=== PATIENT | male | born 1950 | race Caucasian/White ===

== ENCOUNTER 2022-10-10 08:19 | Outpatient (CLI) | payer OTHER, SELFPAY ==
--- NOTE | ~2022-10-10 | US_ITS ---
Renal-Bladder ultrasound Clinical History: Renal cyst Technique: Real-time sonographic imaging of the kidneys and urinary bladder was performed. Findings: The right kidney measures 10.8 cm in length and the left kidney measures 11.5 cm. There is no hydronephrosis or renal calculus identified. Renal cortical echogenicity is within normal limits. No solid renal mass lesion is identified. Small right renal cyst is present. The urinary bladder is moderately distended at the time of this exam. No intraluminal echoes are iden tified. No abnormal wall thickening is seen. Impression: Small right renal cyst, of no clinical significance. Reviewed, dictated and finalized at location M. Impression: Small right renal cyst, of no clinical significance.
== END 2022-10-10 08:20 | disposition home or self-care (01) ==
DX: R93.421 Abnormal radiologic findings on diagnostic imaging of right kidney (principal); N28.1 Cyst of kidney, acquired
CPT/HCPCS: 76775

== ENCOUNTER 2024-11-19 12:27 | Outpatient (CLI) | payer OTHER, SELFPAY ==
--- NOTE | ~2024-11-19 | CT_ITS ---
CT Scan of the Chest without Contrast: Clinical Indication: Lung cancer screening, nicotine dependence Technique: Contiguous sections were acquired throughout the chest without intravenous contrast. Dose reduction technique was used on this scan by utilizing automated exposure control and iterative recon struction technique. The dose-length product (DLP) was 103.21 mGy-cm. Findings: There is no evidence of any significant mediastinal, hilar or axillary lymphadenopathy. Calcified med iastinal and hilar lymph nodes are present. Coronary artery calcifications are present. There is no evidence of pleural or pericardial effusion. 4 mm nodule noted along right minor fissure (axial image 80). Additional 3 mm right middle lobe nodul e present (axial image 83). Calcified right lower lobe granuloma present. 3 mm left lower lobe nodule s are present (axial image 80). Images through the upper abdomen reveal no abnormalities. Impression: Lung RADS 2: Benign appearance. 12 month follow-up screening CT advised. Reviewed, dictated and finalized at [facility]. Impression: Lung RADS 2: Benign appearance. 12 month follow-up screening CT advised.
--- OUTSIDE RECORDS SUMMARY | 2024-11-19 12:35 | XMS_ITS | Clinical Summary ---
Author Organization [facility] Facility Address [address] [address] Care Team Providers Care Jackerman Name Role Phone Unavailable Primary Care Provider Unavailabl e Social History Tobacco Use Types Packs/Day Years Used Date Smoking Tobacco: Never Assessed Sex and Gender Information Value Date Recorded Sex Assigned at Not on file Legal Sex Male 6:15 PM EDT Gender Identity Not on file Sexual Orientation Not on file Plan of Treatment Health Maintenance Due Date Last Done Comments Colorectal Cancer Screening: Annual FOBT 1999 Colorectal Cancer Screening: Colonoscopy 1999 Colorectal Cancer Screening: Sigmoidoscopy 1999 Pneumococcal Vaccine: 50+ Ye ars (1 of 1 - PCV) 2000 Influenza Vaccine (Season Ended) 2025 Hepatitis B Vaccine Aged Out No longe r eligible based on patient's age to complete this topic
--- OUTSIDE RECORDS SUMMARY | 2024-11-19 12:35 | XMS_ITS | Continuity of Care Document ---
Author Name [facility] Organization [facility] Care Team Providers Care Statement Distribution Clerk Name Role Phone [facility] Unavailable Unavailable Problems Combined list of problems from Department of Defense and Veterans Affairs facilities. It does not include entries that were removed or entered in error. Problem Status Onset Date Problem Type Date of Resolution Comments Source Colonic polyp Active Condition [facility] Essential hypertension Active Condition [facility] Exposure to potentially hazardous substance Active Condition [facility] Exposure to potentially hazardous substance ([facility] [id number]) Active Condition Oct 29 4 Entered By: IDALIA FREEDMAN Comment: Entered automatically through [facility] Problem List documentation program [facility] Fitting/Adjustmen t Hearing Aid Active Condition [facility] Hearing loss Active Condition [facility] Hearing Loss (SCT [id number]) Active Condition [facility] HTN - Hypertension (SCT [id number]) Active Condition [facility] Hyperlipidemia Active Condition [facility] Impaired glucose tolerance Active Condition [facility] Mixed Hyperlipidemia (SCT 798857652) Active Condition [facility] Obstructive sleep apnea Active Condition [facility] Obstructive Sleep Apnea of Adult (SCT [id number]) Active Condition [facility] Senorineural Loss Combined Types Active Condition [facility] Tobacco use Active Condition [facility] Tobacco user Active Condition [facility] Tobacco User (SCT 784232136) Active Condition [facility] HYPERLIPIDEMIA Active Condition [facility] tobacco use Active Condition [facility] HEARING LOSS Active Condition [facility] Need For Vaccination Hepatitis B Active Condition [facility] Vaccines Prophylactic Need Against Bacterial Diseases Active Condition [facility] Need For Vaccination Typhoid Inactive Condition [facility] Vaccines Prophylactic Need Against Single Disease Inactive Condition [facility] Need For Vaccination Hepatitis A Active Condition [facility] Vaccines Prophylactic Need Against DTP Inactive Condition DoD visit for: services physical Active Condition Pending optics. DoD visit for: occupational health / fitness exam Active Condition [facility] NORMAL ROUTINE HISTORY AND PHYSICAL Inactive Condition Form 78 completed and faxed (per their request and with patient consent signed) to Personnel Office. No limiting conditions for this job. [facility] Diagnosis: ICD-10-CM I10 Essential (primary) hypertension Active Diagnosis [facility] Diagnosis: ICD-10-CM Z76.89 Persons encountering health services in oth circumstances Active Diagnosis [facility] Diagnosis: ICD-10-CM Z86.010 Personal history of colonic polyps Active Diagnosis [facility] Diagnosis: ICD-10-CM G47.33 Obstructive sleep apnea (adult) (pediatric) Active Diagnosis [facility] Medications Combined list of outpatient medications from Department of Defense and Veterans Affairs facilities.Medications provided include 1) outpatient medications from the last 15 months, and 2) patient-reported medications. Medication Details Route Status Patient Instructions Prescription Expires Prescription Number Last Dispense Date Ordering Provider Order Date Order Qty Source amLODIPine (U/D) 5 MG ORAL TAB TAKE ONE TABLET BY MOUTH EVERY MORNING FOR BLOOD PRESSURE 05/27/2024 [id number] SHANDA TURNER 2023 90 [facility] , VISN 15 AMLODIPINE BESYLATE 10MG TAB TAKE ONE-HALF TABLET BY MOUTH EVERY MORNING ORAL ACTIVE MULUGETA CULLEN 2017 [facility] ([place]) AMLODIPINE BESYLATE 5MG TAB TAKE ONE TABLET BY MOUTH EVERY MORNING FOR BLOOD PRESSURE ORAL ACTIVE 06/16/2025 [id number] 5 GRANT SAUL 2023 90 [facility] AMLODIPINE BESYLATE 5MG TAB TAKE ONE TABLET BY MOUTH EVERY MORNING FOR BLOOD PRESSURE ORAL DISCONT INUED 05/27/2024 [id number] 4 Ilya TURNER 2022 90 [facility] cholecalcif (VIT D3) 2,000 UNIT ORAL TAB TAKE TWO TABLETS BY MOUTH ONCE A DAY FOR VITAMIN DEFICIEN CY 05/27/2024 [id number] 4 SHANDA TURNER 2023 200 [facility] , VISN 15 CHOLECALCIF LESLEY 50MCG (2,000UNIT) TAB TAKE TWO TABLETS BY MOUTH ONCE A DAY FOR VITAMIN DEFICIEN CY ORAL ACTIVE 06/20/2025 [id number] 5 [facility] [address] [facility] CHOLECALCIF LESLEY 50MCG (2,000UNIT) TAB TAKE TWO TABLETS BY MOUTH ONCE A DAY FOR VITAMIN DEFICIEN CY ORAL DISCONT INUED 05/27/2024 [id number] 4 Ilya TURNER 2022 200 [facility] Enalapril Maleate (Vasotec Eq.) Tablet 20 mg Oral TAKE TWO TABLETS BY MOUTH ONCE A DAY FOR HIGH BLOOD PRESSURE 05/27/2024 [id number] 4 SHANDA TURNER 2023 180 [facility] 15 ENALAPRIL MALEATE 20MG TAB TAKE TWO TABLETS BY MOUTH ONCE A DAY FOR HIGH BLOOD PRESSURE ORAL ACTIVE 06/20/2025 [id number] 5 [facility] [address] [facility] ENALAPRIL MALEATE 20MG TAB TAKE TWO TABLETS BY MOUTH ONCE A DAY FOR HIGH BLOOD PRESSURE ORAL DISCONT INUED 05/27/2024 [id number] 4 Ilya TURNER 2022 180 [facility] ENALAPRIL MALEATE 20MG TAB TAKE TWO TABLETS BY MOUTH ONCE A DAY ORAL ACTIVE Bayron KIMBROUGH 2015 [facility] ([place]) MULTIVITAMI N/MINERALS SENIOR FORMULA TAB TAKE 1 TABLET BY MOUTH ONCE A DAY FOR VITAMIN SUPPLEME NTATION ORAL ACTIVE 06/20/2025 [id number] 5 [facility] [address] [facility] MULTIVITAMI N/MINERALS SENIOR FORMULA TAB TAKE 1 TABLET BY MOUTH ONCE A DAY FOR VITAMIN SUPPLEME NTATION ORAL DISCONT INUED 05/27/2024 [id number] 4 Ilya TURNER A 2022 120 [facility] MULTIVITAMI NS W/MINERALS TAB TAKE ONE TABLET BY MOUTH EVERY DAY ORAL ACTIVE KAREL WOO [address] [facility] simvastatin (U/D) 80 MG ORAL TAB TAKE ONE-HALF TABLET BY MOUTH AT BEDTIME FOR CHOLESTE ROL 05/27/2024 [id number] 4 SHANDA TURNER [address] SIMVASTATIN 40MG TAB TAKE ONE TABLET BY MOUTH AT BEDTIME ORAL ACTIVE KAREL WOO ALAN [address] [facility] SIMVASTATIN 80MG TAB TAKE ONE-HALF TABLET BY MOUTH AT BEDTIME FOR CHOLESTE ROL ORAL ACTIVE 06/20/2025 [id number] 5 GRANT SAUL [address] [facility] SIMVASTATIN 80MG TAB TAKE ONE-HALF TABLET BY MOUTH AT BEDTIME FOR CHOLESTE ROL ORAL DISCONT INUED 05/27/2024 [id number] 4 Ilya TURNER 2022 45 [facility] SIMVASTATIN 80MG TAB TAKE ONE-HALF TABLET BY MOUTH AT BEDTIME ORAL ACTIVE [facility]UL[facility]GETA CULLEN 2016 [facility] Allergies, Adverse Reactions, Alerts Combined list of allergies from Department of Defense and Veterans Affairs facilities. It does not include entries that were removed or entered in error. Substance Category Reaction Severity Reaction type Status Date Reported Comments Source ATORVASTATIN Drug allergy (disorder) Myalgias, Muscle Weakness active 3 [facility] ATORVASTATIN Propensity to adverse reactions to drug (finding) Muscle weakness active 3 [facility] CRESTOR Propensity to adverse reactions to drug (finding) Muscle pain active [address] [facility] CRESTOR Propensity to adverse reactions to drug (finding) Muscle weakness active 3 [facility] LIPITOR Propensity to adverse reactions to drug (finding) Muscle pain active [address] [facility] LIPITOR Propensity to adverse reactions to drug (finding) Muscle weakness active 3 [facility] Omeprazole Drug allergy (disorder) Arthralgias active 8 [facility] OMEPRAZOLE Propensity to adverse reactions to drug (finding) Joint pain active 3 [facility] ROSUVASTATIN Drug allergy (disorder) Myalgias, Muscle Weakness active 3 [facility] Immunizations Combined list of available immunizations from the Department of Defense and Veterans Affairs facilities. Immunization Series Date Given Administered By Site Reaction Lot Number CVX Code Drug Certified Personal Chef Status Comments Source ZOSTER RECOMBINANT 2 2023 187 complet ed HISTORICA L INFORMATI ON - FROM PATIENT'S WRITTEN RECORD, [facility] ZOSTER RECOMBINANT 1 2022 [place]AL VIKRAM LEFT DELTO ID [id number] 187 complet ed [facility] [place], a: [id number] x: 03/01/24 [facility] COVID-19 (VALE), VECTOR-NR, [id number], PF, 0.5 ML 1 2020 212 complet ed JSN; [id number]; 1 [facility] TD (ADULT), 5 LF TETANUS TOXOID, PRESERVATIVE FREE, ADSORBED 2017 113 complet ed [facility] ([place]) TD(ADULT) UNSPECIFIED FORMULATION 2017 139 complet ed Completed Series, HISTORICA L INFORMATI ON - FROM OTHER REGISTRY, [facility] PNEUMOCOCCAL POLYSACCHARID E PPV23 2016 33 complet ed [facility] [place] PNEUMOCOCCAL CONJUGATE PCV 13 2015 133 complet ed [facility] [place] TDAP 2007 115 complet ed [facility], VISN 15 hepatitis A vaccine, adult dosage 1 2006 MIRYAM BECKHAM [id number] AA [facility] ed hepatitis A vaccine, adult dosage DoD tuberculin skin test; purified protein derivative solution, intradermal 1 2006 MIRYAM BECKHAM [id number] [employer] (PMC) complet ed tuberculi n skin test; purified protein derivativ e solution, intraderm al DoD typhoid Vi capsular polysaccharid e vaccine 1 2006 MIRYAM BECKHAM [id number] [employer] P[employer] ([place]) complet ed typhoid Vi capsular polysacch aride vaccine DoD tetanus toxoid, reduced diphtheria toxoid, and acellular pertu is vaccine, adsorbed 1 2006 BHAVANI, MIRYAM L [id number] 115 Other (OTH) complet ed tetanus toxoid, reduced diphtheri a toxoid, and acellular pertussis vaccine, adsorbed DoD Results Combined list of recent chemistry, hematology and other laboratory results from Department of Defense and Veterans Affairs, ranging from 15 months to all on record, depending upon the facility. Order Name Results Value Reference Range Date Interpretation Specimen Comments Source HDL-CHOLES TEROL CHOLESTEROL IN HDL [MASS/VOLUM E] IN SERUM OR PLASMA 33 mg/dL 40 06/19 L Specimen Type: PLASMA No comment entered. Ordering Provider: GRANT SAUL Report Released Date/Time : Jun 24, 2023 02:12 PM Reporting Lab: [place] [address] Performin g Lab: [place] [address] [facility] LDL,DIRECT ([place]) CHOLESTEROL IN LDL [MASS/VOLUM E] IN SERUM OR PLASMA BY DIRECT ASSAY 76 mg/dL 06/19 Specimen Type: PLASMA No comment entered. Ordering Provider: GRANT SAUL Report Released Date/Time : Jun 24, 2023 02:12 PM Reporting Lab: [place] [address] 5 Performin g Lab: [place] [address] [facility] CHOLESTERO L CHOLESTEROL [MASS/VOLUM E] IN SERUM OR PLASMA 132 mg/dL 0 - 200 06/19 Specimen Type: PLASMA No comment entered. Ordering Provider: GRANT SAUL Report Released Date/Time : Jun 24, 2023 02:12 PM Reporting Lab: [place] [address] 5 Performin g Lab: [place] [address] [facility] HEMOGLOBIN A1C HEMOGLOBIN A1C/HEMOGLO BIN.TOTAL IN BLOOD BY HPLC 6.3 4.0 - 6.0 06/19 H Specimen Type: BLOOD No comment entered. Ordering Provider: GRANT SAUL Report Released Date/Time : Jun 24, 2023 02:12 PM Reporting Lab: [place] [address] 5 Performin g Lab: [place] [address] [facility] CBC PROFILE LEUKOCYTES [#/VOLUME] IN BLOOD BY AUTOMATED COUNT 10.30 10*3/u L 3.6 - 11.2 06/19 Specimen Type: BLOOD No comment entered. Ordering Provider: GRANT SAUL Report Released Date/Time : Jun 24, 2023 02:12 PM Reporting Lab: [place] [address] 5 Performin g Lab: [place] [address] [facility] CBC PROFILE ERYTHROCYTE S [#/VOLUME] IN BLOOD BY AUTOMATED COUNT 5.19 10*6/u L 4.10 - 5.70 06/19 Specimen Type: BLOOD No comment entered. Ordering Provider: GRANT SAUL Report Released Date/Time : Jun 24, 2023 02:12 PM Reporting Lab: [place] [address] 5 Performin g Lab: [place] [address] [facility] CBC PROFILE HEMOGLOBIN [MASS/VOLUM E] IN BLOOD 14.8 g/dL 13.1 - 16.8 06/19 Specimen Type: BLOOD No comment entered. Ordering Provider: GRANT SAUL Report Released Date/Time : Jun 24, 2023 02:12 PM Reporting Lab: [place] [address] 5 Performin g Lab: [place] [address] [facility] CBC PROFILE HEMATOCRIT [VOLUME FRACTION] OF BLOOD BY AUTOMATED COUNT 45.5 38.2 - 48.4 06/19 Specimen Type: BLOOD No comment entered. Ordering Provider: GRANT SAUL Report Released Date/Time : Jun 24, 2023 02:12 PM Reporting Lab: [place] [address] 5 Performin g Lab: [place] [address] [facility] CBC PROFILE MCV [ENTITIC VOLUME] BY AUTOMATED COUNT 87.7 fL 80.0 - 100.0 06/19 Specimen Type: BLOOD No comment entered. Ordering Provider: GRANT SAUL Report Released Date/Time : Jun 24, 2023 02:12 PM Reporting Lab: [place] [address] 5 Performin g Lab: [place] [address] [facility] CBC PROFILE MCH [ENTITIC MASS] BY AUTOMATED COUNT 28.5 pg 27.0 - 34.0 06/19 Specimen Type: BLOOD No comment entered. Ordering Provider: GRANT SAUL Report Released Date/Time : Jun 24, 2023 02:12 PM Reporting Lab: [place] [address] 5 Performin g Lab: [place] [address] [facility] CBC PROFILE MCHC [MASS/VOLUM E] BY AUTOMATED COUNT 32.5 g/dL 33.0 - 36.0 06/19 L Specimen Type: BLOOD No comment entered. Ordering Provider: GRANT SAUL Report Released Date/Time : Jun 24, 2023 02:12 PM Reporting Lab: [place] [address] 5 Performin g Lab: [place] [address] [facility] CBC PROFILE PLATELETS [#/VOLUME] IN BLOOD BY AUTOMATED COUNT 285 10*3/u L 150 - 400 06/19 Specimen Type: BLOOD No comment entered. Ordering Provider: GRANT SAUL Report Released Date/Time : Jun 24, 2023 02:12 PM Reporting Lab: [place] [address] 5 Performin g Lab: [place] [address] [facility] CBC PROFILE PLATELET MEAN VOLUME [ENTITIC VOLUME] IN BLOOD BY AUTOMATED COUNT 10.8 fL 7.5 - 11.2 06/19 Specimen Type: BLOOD No comment entered. Ordering Provider: GRANT SAUL Report Released Date/Time : Jun 24, 2023 02:12 PM Reporting Lab: [place] [address] 5 Performin g Lab: [place] [address] [facility] CBC PROFILE ERYTHROCYTE DISTRIBUTIO N WIDTH [RATIO] BY AUTOMATED COUNT 13.7 11.8 - 15.1 06/19 Specimen Type: BLOOD No comment entered. Ordering Provider: GRANT SAUL Report Released Date/Time : Jun 24, 2023 02:12 PM Reporting Lab: [place] [address] 5 Performin g Lab: [place] [address] [facility] CMP-NONFAS TING ([place]) CREATININE [MASS/VOLUM E] IN SERUM OR PLASMA 0.92 mg/dL 0.7 - 1.3 06/19 Specimen Type: PLASMA No comment entered. Ordering Provider: GRANT SAUL Report Released Date/Time : Jun 24, 2023 02:12 PM Reporting Lab: [place] [address] 5 Performin g Lab: [place] [phone] 5 [facility] CMP-NONFAS TING ([place]) UREA NITROGEN [MASS/VOLUM E] IN SERUM OR PLASMA 10 mg/dL 9 - 25 06/19 Specimen Type: PLASMA No comment entered. Ordering Provider: GRANT SAUL Report Released Date/Time : Jun 24, 2023 02:12 PM Reporting Lab: [place] [address] 5 Performin g Lab: [place] [address] [facility] CMP-NONFAS TING ([place]) GLUCOSE [MASS/VOLUM E] IN SERUM OR PLASMA 106 mg/dL 72 - 99 06/19 H Specimen Type: PLASMA No comment entered. Ordering Provider: GRANT SAUL Report Released Date/Time : Jun 24, 2023 02:12 PM Reporting Lab: [place] [address] 5 Performin g Lab: [place] [address] [facility] CMP-NONFAS TING ([place]) SODIUM [MOLES/VOLU ME] IN SERUM OR PLASMA 137 meq/L 136 - 145 06/19 Specimen Type: PLASMA No comment entered. Ordering Provider: GRANT SAUL Report Released Date/Time : Jun 24, 2023 02:12 PM Reporting Lab: [place] [address] 5 Performin g Lab: [place] [address] 5 [facility] CMP-NONFAS TING ([place]) POTASSIUM [MOLES/VOLU ME] IN SERUM OR PLASMA 4.4 meq/L 3.5 - 5.0 06/19 Specimen Type: PLASMA No comment entered. Ordering Provider: GRANT SAUL Report Released Date/Time : Jun 24, 2023 02:12 PM Reporting Lab: [place] [address] 5 Performin g Lab: [place] [address] [facility] CMP-NONFAS TING ([place]) CALCIUM [MASS/VOLUM E] IN SERUM OR PLASMA 9.8 mg/dL 8.4 - 10.4 06/19 Specimen Type: PLASMA No comment entered. Ordering Provider: GRANT SAUL Report Released Date/Time : Jun 24, 2023 02:12 PM Reporting Lab: [place] [address] 5 Performin g Lab: [place] [address] 5 [facility] CMP-NONFAS TING ([place]) PROTEIN [MASS/VOLUM E] IN SERUM OR PLASMA 7.8 g/dL 6.0 - 8.6 06/19 Specimen Type: PLASMA No comment entered. Ordering Provider: GRANT SAUL Report Released Date/Time : Jun 24, 2023 02:12 PM Reporting Lab: [place] [address] 5 Performin g Lab: [place] [address] 5 [facility] CMP-NONFAS TING ([place]) ALBUMIN [MASS/VOLUM E] IN SERUM OR PLASMA 4.7 g/dL 3.4 - 5.0 06/19 Specimen Type: PLASMA No comment entered. Ordering Provider: GRANT SAUL Report Released Date/Time : Jun 24, 2023 02:12 PM Reporting Lab: [place] [address] 5 Performin g Lab: [place] [address] 5 [facility] CMP-NONFAS TING ([place]) BILIRUBIN.T OTAL [MASS/VOLUM E] IN SERUM OR PLASMA 0.5 mg/dL 0.2 - 1.2 06/19 Specimen Type: PLASMA No comment entered. Ordering Provider: GRANT SAUL Report Released Date/Time : Jun 24, 2023 02:12 PM Reporting Lab: [place] [phone] Performin g Lab: [place] [phone] [facility] CMP-NONFAS TING ([place]) ASPARTATE AMINOTRANSF ERASE [ENZYMATIC ACTIVITY/VO LUME] IN SERUM OR PLASMA 23 U/L 5 - 34 06/19 Specimen Type: PLASMA No comment entered. Ordering Provider: GRANT SAUL Report Released Date/Time : Jun 24, 2023 02:12 PM Reporting Lab: [place] [address] 5 Performin g Lab: [place] [phone] 5 [facility] CMP-[facility] ([place]) ALANINE AMINOTRANSF ERASE [ENZYMATIC ACTIVITY/VO LUME] IN SERUM OR PLASMA 35 U/L 8 - 40 06/19 Specimen Type: PLASMA No comment entered. Ordering Provider: GRANT SAUL Report Released Date/Time : Jun 24, 2023 02:12 PM Reporting Lab: [place] [address] 5 Performin g Lab: [place] [phone] [facility] CMP-NONFAS TING ([place]) CHLORIDE [MOLES/VOLU ME] IN SERUM OR PLASMA 102 meq/L 98 - 107 06/19 Specimen Type: PLASMA No comment entered. Ordering Provider: GRANT SAUL Report Released Date/Time : Jun 24, 2023 02:12 PM Reporting Lab: [place] [address] 5 Performin g Lab: [place] [address] 5 [facility] CMP-NONFAS TING ([place]) CARBON DIOXIDE, TOTAL [MOLES/VOLU ME] IN SERUM OR PLASMA 30 meq/L 22 - 31 06/19 Specimen Type: PLASMA No comment entered. Ordering Provider: GRANT SAUL Report Released Date/Time : Jun 24, 2023 02:12 PM Reporting Lab: [place] [phone] Performin g Lab: [place] [phone] 5 [facility] CMP-NONFAS TING ([place]) ALKALINE PHOSPHATASE [ENZYMATIC ACTIVITY/VO LUME] IN SERUM OR PLASMA 95 U/L 40 - 150 06/19 Specimen Type: PLASMA No comment entered. Ordering Provider: GRANT SAUL Report Released Date/Time : Jun 24, 2023 02:12 PM Reporting Lab: [place] [address] 5 Performin g Lab: [place] [address] 5 [facility] CMP-NONFAS TING ([place]) GLOMERULAR FILTRATION RATE/1.73 SQ M.PREDICTED [VOLUME RATE/AREA] IN SERUM, PLASMA OR BLOOD BY CREATININE- BASED FORMULA (CKD-EPI 2020) 88 06/19 Specimen Type: PLASMA No comment entered. Ordering Provider: GRANT SAUL Report Released Date/Time : Jun 24, 2023 02:12 PM Reporting Lab: [place] [address] 5 Performin g Lab: [place] [address] 5 [facility] URINE ALBUMIN, RANDOM MICROALBUMI N [MASS/VOLUM E] IN URINE <0.5mg /dL 06/19 Specimen Type: URINE No comment entered. Ordering Provider: GRANT SAUL Report Released Date/Time : Jun 24, 2023 02:12 PM Reporting Lab: [place] [address] 5 Performin g Lab: [place] [address] 5 [facility] URINE ALBUMIN, RANDOM CREATININE [MASS/VOLUM E] IN URINE 42.9 mg/dL 06/19 Specimen Type: URINE No comment entered. Ordering Provider: GRANT SAUL Report Released Date/Time : Jun 24, 2023 02:12 PM Reporting Lab: [place] [address] 5 Performin g Lab: [place] [address] 5 [facility] TRIGS TRIGLYCERID E [MASS/VOLUM E] IN SERUM OR PLASMA 99 mg/dL 0 - 150 06/19 Specimen Type: PLASMA No comment entered. Ordering Provider: GRANT SAUL Report Released Date/Time : Jun 16, 2024 07:26 AM Reporting Lab: [place] [phone] Performin g Lab: [place] [phone] 5 [facility] LIPID PROFILE(HD L,TRIG,CHO L,LDL) CHOLESTEROL [MASS/VOLUM E] IN SERUM OR PLASMA 127 mg/dL 0 - 200 06/24 Specimen Type: PLASMA No comment entered. Ordering Provider: GRANT SAUL Report Released Date/Time : Jun 18, 2023 11:15 AM Reporting Lab: [place] [address] 5 Performin g Lab: [place] [phone] 5 [facility] LIPID PROFILE(HD L,TRIG,CHO L,LDL) TRIGLYCERID E [MASS/VOLUM E] IN SERUM OR PLASMA 69 mg/dL 0 - 150 06/24 Specimen Type: PLASMA No comment entered. Ordering Provider: GRANT SAUL Report Released Date/Time : Jun 18, 2023 11:15 AM Reporting Lab: [place] [address] 5 Performin g Lab: [place] [phone] [facility] LIPID PROFILE(HD L,TRIG,CHO L,LDL) CHOLESTEROL IN HDL [MASS/VOLUM E] IN SERUM OR PLASMA 41 mg/dL 40 06/24 Specimen Type: PLASMA No comment entered. Ordering Provider: GRANT SAUL Report Released Date/Time : Jun 18, 2023 11:15 AM Reporting Lab: [place] [address] 5 Performin g Lab: [place] [address] 5 [facility] LIPID PROFILE(HD L,TRIG,CHO L,LDL) CHOLESTEROL IN LDL [MASS/VOLUM E] IN SERUM OR PLASMA BY CALCULATION 72 mg/dL 0 - 99.9 06/24 Specimen Type: PLASMA No comment entered. Ordering Provider: GRANT SAUL Report Released Date/Time : Jun 18, 2023 11:15 AM Reporting Lab: [place] [phone] Performin g Lab: [place] [phone] [facility] CBC PROFILE LEUKOCYTES [#/VOLUME] IN BLOOD BY AUTOMATED COUNT 8.10 10*3/u L 3.6 - 11.2 06/24 Specimen Type: BLOOD No comment entered. Ordering Provider: GRANT SAUL Report Released Date/Time : Jun 18, 2023 11:15 AM Reporting Lab: [place] [address] 5 Performin g Lab: [place] [address] 5 [facility] CBC PROFILE ERYTHROCYTE S [#/VOLUME] IN BLOOD BY AUTOMATED COUNT 5.20 10*6/u L 4.10 - 5.70 06/24 Specimen Type: BLOOD No comment entered. Ordering Provider: GRANT SAUL Report Released Date/Time : Jun 18, 2023 11:15 AM Reporting Lab: [place] [address] 5 Performin g Lab: [place] [address] 5 [facility] CBC PROFILE HEMOGLOBIN [MASS/VOLUM E] IN BLOOD 14.7 g/dL 13.1 - 16.8 06/24 Specimen Type: BLOOD No comment entered. Ordering Provider: GRANT SAUL Report Released Date/Time : Jun 18, 2023 11:15 AM Reporting Lab: [place] [address] 5 Performin g Lab: [place] [address] 5 [facility] CBC PROFILE HEMATOCRIT [VOLUME FRACTION] OF BLOOD BY AUTOMATED COUNT 45.6 38.2 - 48.4 06/24 Specimen Type: BLOOD No comment entered. Ordering Provider: GRANT SAUL Report Released Date/Time : Jun 18, 2023 11:15 AM Reporting Lab: [place] [address] 5 Performin g Lab: [place] [address] 5 [facility] CBC PROFILE MCV [ENTITIC VOLUME] BY AUTOMATED COUNT 87.7 fL 80.0 - 100.0 06/24 Specimen Type: BLOOD No comment entered. Ordering Provider: GRANT SAUL Report Released Date/Time : Jun 18, 2023 11:15 AM Reporting Lab: [place] [address] 5 Performin g Lab: [place] [phone] [facility] CBC PROFILE MCH [ENTITIC MASS] BY AUTOMATED COUNT 28.3 pg 27.0 - 34.0 06/24 Specimen Type: BLOOD No comment entered. Ordering Provider: GRANT SAUL Report Released Date/Time : Jun 18, 2023 11:15 AM Reporting Lab: [place] [address] 5 Performin g Lab: [place] [address] 5 [facility] CBC PROFILE MCHC [MASS/VOLUM E] BY AUTOMATED COUNT 32.2 g/dL 33.0 - 36.0 06/24 L Specimen Type: BLOOD No comment entered. Ordering Provider: GRANT SAUL Report Released Date/Time : Jun 18, 2023 11:15 AM Reporting Lab: [place] [address] Performin g Lab: [place] [address] [facility] CBC PROFILE PLATELETS [#/VOLUME] IN BLOOD BY AUTOMATED COUNT 259 10*3/u L 150 - 400 06/24 Specimen Type: BLOOD No comment entered. Ordering Provider: GRANT SAUL Report Released Date/Time : Jun 18, 2023 11:15 AM Reporting Lab: [place] [address] Performin g Lab: [place] [address] [facility] CBC PROFILE PLATELET MEAN VOLUME [ENTITIC VOLUME] IN BLOOD BY AUTOMATED COUNT 10.1 fL 7.5 - 11.2 06/24 Specimen Type: BLOOD No comment entered. Ordering Provider: GRANT SAUL Report Released Date/Time : Jun 18, 2023 11:15 AM Reporting Lab: [place] [address] Performin g Lab: [place] [address] [facility] CBC PROFILE ERYTHROCYTE DISTRIBUTIO N WIDTH [RATIO] BY AUTOMATED COUNT 13.7 11.8 - 15.1 06/24 Specimen Type: BLOOD No comment entered. Ordering Provider: GRANT SAUL Report Released Date/Time : Jun 18, 2023 11:15 AM Reporting Lab: [address] [place] [address] Performin g Lab: [facility] [address] [facility] [address] [facility] Vital Signs Combined list of inpatient and outpatient Vital Signs from Department of Defense and Veterans Affairs, ranging from 12 months to all on record, depending upon the facility. Vital Sign Value Date Comments Source SYSTOLIC BLOOD PRESSURE 136 06/19/20 24 09:50:00 [facility] DIASTOLIC BLOOD PRESSURE 70 024 09:50:00 [facility] WEIGHT 189 06/19/2024 09:50:00 [facility] BMI 27 kg/m2 06/19/2024 09:50:00 [facility] PAIN 2 06/19/2024 09:50:00 [facility] TEMPERATURE 98.2 06/19/2024 09:50:00 [facility] PULSE 68 06/19/2024 09:50:00 [facility] RESPIRATION 19 06/19/2024 09:50:00 [facility] Encounters Combined list of: 1) Encounters from Department of Veterans Affairs facilities going backup to the last 18 months, not all [place] inpatient encounters are included; 2) Encounters from the Department of [facility] facilities going backup to 280 months. Location Location Details Encounter Type Encounter Number Reason For Visit Attending Provider ADM Date DC Date Status Disposition Source [address] [place] [address] Jaylon CABRAL ([facility]Sco tt Flight Medicine Tm) OUTPATIENT [id number] PRE-EMP LOYMENT VIDYA WHEELER 10/14 Released w/o Limitations [address] [place] [address] Jaylon CABRAL [facility])(S cott Flight Medicin e Tm) AVTAR Bosch([facility] OUTPATIENT [id number] Deploy NASRIN Ybarra 02/18 Released w/o Limitations [facility] [place] Jimenez [place] [facility]) OUTPATIENT [id number] Predepl oyment medical screeni ng assessm DEVI Portillo 03/03 Released w/o Limitations [place] [facility] OUTPATIENT [id number] DEPLOYM ENT PE ANEL BUENROSTROI 09/17 Released w/o Limitations [facility] [place], [facility]) [place] Jimenez [place]Read[place] [facility]) OUTPATIENT [id number] Pre-dep loyment medical screeni ng assessm ent DELETED_HA YS, ARNIE H 10/05 Released w/o Limitations [place] [facility] [place] [facility] [place]) OUTPATIENT [id number] EE PHYSICA L BARGLOF, KAYCE JUVENTINO 10/19 Released w/o Limitations [facility], [facility], [facility]) OUTPATIENT [id number] hearing IGOR, WILEY 10/19 Released w/o Limitations [facility], [facility], [facility]) OUTPATIENT [id number] opt IGOR, WILEY 10/19 Released w/o Limitations [facility] [place]([facility]) [facility] DIV[facility] TARGETED CASE MANAGEMENT [id number] MARQUISE MOURA 05/22 [facility] Outpatient Encounter [id number] 05/27 [facility] OFFICE O/P EST MOD 30-39 MIN [id number] Diagnos is: ICD-10- CM I10 Essenti al (primar y) hyperte SARAH Bermudez 05/27 [facility] OFFICE O/P NEW MOD 45-59 MIN [id number] Diagnos is: ICD-10- CM G47.33 Obstruc tive sleep apnea (adult) (pediat abimbola) HIRA SAUL 06/24 [facility] Outpatient Encounter [id number] Diagnos is: ICD-10- CM Z86.010 Shaka holbrook history of colonic polyps Ana SAMUEL 06/25 [facility] Outpatient Encounter [id number] 07/19 [facility] En[facility] [id number] 07/22 [facility] Outpatient Encounter [id number] 08/28 [facility] Outpatient Encounter [id number] 09/11 [facility] Outpatient Encounter [id number] 09/11 [facility] Outpatient Encounter [id number] 09/[address] [facility] [address] [facility] HC PRO PHONE CALL 5-10 MIN [id number] Diagnos is: ICD-10- CM Z76.89 [facility] HEATHER Farrell 09/25 [address] [facility] Outpatient Encounter [id number] 10/08 [facility] Outpatient Encounter [id number] 11/11 [facility] Outpatient Encounter [id number] 12/13 [facility] Outpatient Encounter [id number] 01/28 [facility] Outpatient Encounter [id number] HANNAH HALL 01/29 [facility] Outpatient Encounter [id number] 06/15 [facility] Outpatient Encounter [id number] 06/18 [facility] Outpatient Encounter [id number] 06/[address] [facility] [address] [place] [facility] OFF[facility] O/P EST MOD 30 MIN [id number] Diagnos is: ICD-10- CM I10 Essenti al (primar y) hyperte HIRA Siegel 06/[address] [place] [facility] Procedures Combined list of: 1) Procedures from Department of Veterans Affairs facilities going back up to thelast 18 months, not all [place] non-surgical procedures are included; 2) All procedures from the Department of Defense facilities. Procedure Procedure Type Code Date Perfomer Comments Sourc e HEPATITIS B VACCINE (HEPB), ADULT DOSAGE, 3 DOSE SCHEDULE, FOR INTRAMUSCULAR USE 10/06/19 08 [facility] SKIN TEST; TUBERCULOSIS, INTRADERMAL 03/03/20 07 [facility] PURE TONE AUDIOMETRY (THRESHOLD); AIR ONLY 10/20/19 09 [facility] SCREENING TEST OF VISUAL ACUITY, QUANTITATIVE, BILATERAL 10/20/19 09 [facility] ANALYSIS OF CLINICAL DATA STORED IN COMPUTERS (EG, ECGS, BLOOD PRESSURES, HEMATOLOGIC DATA) 09/18/19 08 [facility] VIS FUNCT SCREEN,AUTOMAT/SEMI-A UTOMAT BILAT QUANT DETERM VISUAL ACUITY,OCULAR ALIGN,COLOR VISION,PSEUDOISOCHROM AT PLATES,& FIELD VIS (MAY INC ALL/SOME SCRN DETERM FOR CONTRAST SENSITIV,VIS UND GLARE) 09/18/19 08 [facility] PURE TONE AUDIOMETRY (THRESHOLD); AIR ONLY 09/18/19 08 [facility] Threshold Audiogram (Pure Tone) Threshold Audiogram (Pure Tone) 23411 10/29/19 09 WILEY COSTA [facility] Electrocardiogram Electrocardiogram 55041 10/21 09 KAYCE MOTLEY DoD Spirometry Spirometry 14372 10/22/19 09 BARGLOF, KAYCE JUVENTINO DoD Visual Function Screening Visual Function Screening 63352 10/22/19 09 BARGLOF, KAYCE JUVENTINO DoD Threshold Audiogram (Pure Tone) Threshold Audiogram (Pure Tone) 90873 10/22/19 09 BARGLOF, KAYCE JUVENTINO Vero Anthrax Vaccine, For Subcutaneous Use 10/06/19 08 [employer], ARNIE H [employer] Immunization Administration Each Additional Vaccine 10/06/19 08 DELETED_CytonicsS, ARNIE H Vero Hepatitis A Vaccine Adult Dosage (Intramuscular Use) Hepatitis A Vaccine Adult Dosage (Intramuscular Use) 29092 10/06/19 08 DELETED_[employer], ARNIE [employer] Hepatitis B Vaccine (Active); 20 Years and Above 10/06/19 08 DELETED_HAYS, ARNIE H [employer] Immunization Administration One Vaccine Immunization Administration One Vaccine 65089 10/06/19 08 DELETED_[employer], ARNIE H [employer] Threshold Audiogram (Pure Tone) Threshold Audiogram (Pure Tone) 31107 09/18/19 08 CHELLI, YANE Vero Visual Function Screening Visual Function Screening 50549 09/18/19 08 CHELLI, YANE Vero Spirometry Spirometry 18556 09/18/19 08 CHELLI, YANE Vero ECG 12-Lead ECG 12-Lead 32280 09/18/19 08 CHELLI, YANE Vero Typhoid Vaccine Vi Capsular Polysaccharide, For Intramus Use Typhoid Vaccine Vi Capsular Polysaccharide, For Intramus Use 95844 03/03/20 07 DEVI BOSTON Skin Test Anergy tuberculin Skin Test Anergy tuberculin 02502 03/03/20 07 [facility] Hepatitis A Vaccine Adult Dosage (Intramuscular Use) Hepatitis A Vaccine Adult Dosage (Intramuscular Use) 55900 03/03/20 07 [facility] Immunization Administration Each Additional Vaccine 03/03/20 07 [facility] Immunization Administration One Vaccine Immunization Administration One Vaccine 60789 03/03/20 07 [facility]OSTON DTaP Vaccine Seven Years Of Age And Above DTaP Vaccine Seven Years Of Age And Above 55681 03/03/20 07 [facility] Venipuncture Venipuncture 53845 03/03/20 07 DE[facility]OSTON Social History Combined list of available smoking, tobacco, and other social history from Department of Defense and Veterans Affairs facilities. Social History Type Response Date Comment Sourc e Tobacco smoking status NHIS VA-TOBACCO USE EVERY DAY CIGARETTES 06/19/2024 [facility] History of tobacco use VA-TOBACCO NEVER USED OTHER TYPE 06/19/2024 [facility] History of tobacco use VA-TOBACCO USER EVERY DAY 05/27/2023 [facility] History of tobacco use VA-TOBACCO USER EVERY DAY 08/22/2022 Carley JEANNE [facility] History of tobacco use VA-TOBACCO USER EVERY DAY 05/09/2021 [facility] [place] of tobacco use VA-TOBACCO DOESNT USE WI 30 MIN WAKEUP 05/11/2020 [facility] [place] History [place] tobacco use TOBACCO USER OFFERED MEDS 08/06/2017 [facility] [place] History of tobacco use CO-TOBACCO USE PAST 12 MO 02/06/2016 [facility] [place] History of tobacco use TOBACCO SCREEN BROCHURE 04/16/[address] [facility] This section is an empty social history section. DoD Plan of Care List of future care activities from Department of Veterans Affairs facilities. Additional future care activities may be listed in the Assessment and Plan section. Date/Time Care Activity Care Activity Detail Facili ty 11/19/2024 AMBULATORY - NONE AMBULATORY - NONE [facility]
--- OUTSIDE RECORDS SUMMARY | 2024-11-19 12:35 | XMS_ITS | Encounter Summary ---
Author Name [facility] [facility] [place] [facility] [place] [facility] [place] Address [address] [place] [address] Care Team Providers Care Marine Cargo Specialist Name Role Phone URBANO MARTINEZ Primary Care Provider Unavailabl e NICKI SAUL Primary Care Provider Unavailabl e Insurance Providers: All historical and current Section Date Range: From patient's date of to the date document was created. This section includes the names of all active insurance providers for the patient. Insurance Provider Type of Coverage Plan Name Start of Policy Coverage End of Policy Coverage Group Number Member ID Insurance Provider's Telephone Number Policy Comer's Name Patient's Relationship to Policy Comer [place] PREFERRED PROVIDER ORGANIZAT ION (PPO) FEP STAND OUMAR FAM Jul 15, 2015 105 [id number] [phone] OSITO PHAM PATIENT ANTHEM [place] F[place] PREFERRED PROVIDER ORGANIZAT ION (PPO) FEP STAND OUMAR FAM Jul 15, 2015 105 [id number] [phone] OSITO PHAM PATIENT [place] PREFERRED PROVIDER ORGANIZAT ION (PPO) FEP STAND OUMAR FAM Apr 10, 2016 105 [id number] [phone] OSITO PHAM PATIENT [place] PREFERRED PROVIDER ORGANIZAT ION (PPO) FEP STAND OUMAR FAM Jul 15, 2015 105 [id number] [phone] OSITO PHAM PATIENT [place] PREFERRED PROVIDER ORGANIZAT ION (PPO) FEP STAND OUMAR FAM Jul 15, 2015 105 [id number] [phone] OSITO PHAM PATIENT BCBS [place] ATTN FEP CLAIMS PREFERRED PROVIDER ORGANIZAT ION (PPO) FEP STAND OUMAR FAM Apr 10, 2016 105 [id number] [phone] OSITO PHAM PATIENT [place] F[place] PREFERRED PROVIDER ORGANIZAT ION (PPO) FEP STAND OUMAR FAM Apr 10, 2016 105 [id number] [phone] OSITO PHAM PATIENT [place] FEP ([id number]) PRESCRIPT ION FEP RX December 08, 2006 [id number] [phone] OSITO PHAM PATIENT [place] FEP ([id number]) PRESCRIPT ION FEPRX December 08, 2006 [id number] [phone] OSITO PHAM PATIENT [id number] [place] FEP PREFERRED PROVIDER ORGANIZAT ION (PPO) FEP STAND OUMAR FAMIL Y December 08, 2006 [id number] OSITO PHAM PATIENT MEDICARE (WNR) MEDICARE () PART B Jan 13, 2016 PART B [id number] OSITO PHAM PATIENT MEDICARE (WNR) MEDICARE () PART B Jan 13, 2016 PART B [id number] [phone] OSITO PHAM PATIENT MEDICARE (WNR) MEDICARE () PART B Jan 13, 2016 PART B [id number] [phone] OSITO PHAM PATIENT MEDICARE (WNR) MEDICARE () PART A Jul 15, 2015 PART A [id number] OSITO PHAM PATIENT MEDICARE (WNR) MEDICARE () PART A Jul 15, 2015 PART A [id number] [phone] OSITO PHAM PATIENT MEDICARE (WNR) MEDICARE () PART A Jul 15, 2015 PART A [id number] [phone] OSITO PHAM PATIENT Selected Encounter This section includes the information on record at [place] for the Encounter. Date/Time Encounter Type Encounter Description Reason Provider Source Jun 19, 2024 11:30 AM OFFICE O/P EST MOD 30 MIN PRIMARY CARE/MEDICINE ICD-10-CM I10 Essential (primary) hypertension NICKI SAUL [facility] Encounter Template Text not used by [place] Assessments - Encounter Diagnoses This section includes the primary and secondary diagnoses documented for the Encounter. Date/Time Primary/Secondary Diagnosis Diagnosis Name Provider Source Jun 19, 2024 10:23 AM PRIMARY Essential (primary) hypertension NICKI SAUL [facility] Jun 19, 2024 10:23 AM SECONDARY Contact with and exposure to other hazardous substances NICKI SAUL [facility] Jun 19, 2024 10:23 AM SECONDARY Hyperlipidemia, unspecified NICKI SAUL [facility] Jun 19, 2024 10:23 AM SECONDARY Obstructive sleep apnea (adult) (pediatric) NICKI SAUL [facility] Jun 19, 2024 10:23 AM SECOND[facility] Plan of Treatment: Future Appointments (+ 6 months) and Future Tests (+/- 45 days) The Plan of Treatment section includes future care activities for the [facility] [place] [facility] This section includes future appointments and future orders which are active, pending or scheduled. Future Appointments This section includes appointments that were scheduled to occur 6 months from the date of the Encounter, up to a maximum of 20 appointments. The data comes from all [place] treatment facilities. Appointment Date/Time Appointment Type Appointme nt Facility Name November 19, 2024 01:00 PM AMBULATORY - NONE [facility] Lab Results: +/- 30 days of the encounter This section includes the Chemistry and Hematology Lab Results on record with [place] for the patient. Radiology Reports and Pathology Reports are provided separately, in subsequent sections. Lab Results This section contains the Chemistry/Hematology Results that were resulted 30 days before or 30 daysafter the date of the Encounter. Date/Time Source Result Type Result - Unit Interpretation Reference Range Specimen Type Comment Jun 19, 2024 09:35 AM [facility] HDL-CHOLESTEROL PLASMA Specimen Type: PLASMA No comment entered. Ordering Provider: NICKI SAUL Report Released Date/Time: Jun 24, 2023 02:12 PM Reporting Lab: [address] [phone] Performing Lab: [address] [phone] HDL-CHOLESTEROL 33 mg/dL L > 40 Jun 19, 2024 09:35 AM [facility] LDL,DIRECT (CO) PLASMA Specimen Type : PLASMA No comment entered. Ordering Provider: NICKI SAUL Report Released Date/Time: Jun 24, 2023 02:12 PM Reporting Lab: [address] [phone] Performing Lab: [address] [address] LDL,DIRECT (CO) 76 mg/dL Jun 19, 2024 09:35 AM [facility] CHOLESTEROL PLASM A Specimen Type: PLASMA No comment entered. Ordering Provider: NICKI SAUL Report Released Date/Time: Jun 24, 2023 02:12 PM Reporting Lab: [address] [phone] Performing Lab: [address] [phone] CHOLESTEROL 132 mg/dL 0-200 Jun 19, 2024 09:35 AM [facility] HEMOGLOBIN A1C BLOOD Specimen Type: BLOOD No comment entered. Ordering Provider: NICKI SAUL Report Released Date/Time: Jun 24, 2023 02:12 PM Reporting Lab: [address] [phone] Performing Lab: [address] [address] HEMOGLOBIN A1C 6.3 H 4.0-6.0 Jun 19, 2024 09:35 AM [facility] CBC PROFILE BLOOD Specimen Type: BLOOD No comment entered. Ordering Provider: NICKI SAUL Report Released Date/Time: Jun 24, 2023 02:12 PM Reporting Lab: [address] [address] Performing Lab: [place] [phone] WBC 10.30 10*3/uL 3.6-11.2 RBC 5.19 10*6/uL 4.10-5.70 HGB 14.8 g/dL 13.1-16.8 HCT 45.5 38.2-48.4 MCV 87.7 fL 80.0-100.0 MCH 28.5 pg 27.0-34.0 MCHC 32.5 g/dL L 33.0-36.0 PLATELET COUNT 285 10*3/uL 150-400 MPV 10.8 fL 7.5-11.2 RDW 13.7 11.8-15.1 Jun 19, 2024 09:35 AM [facility] CMP-NONFASTING (CO) PLASMA Specimen Type: PLASMA No comment entered. Ordering Provider: NICKI SAUL Report Released Date/Time: Jun 24, 2023 02:12 PM Reporting Lab: [address] [phone] Performing Lab: [address] [phone] *CREATININE 0.92 mg/dL 0.7-1.3 UREA NITROGEN mg/dL 10 mg/dL 9-25 GLUCOSE 106 mg/dL H 72-99 SODIUM 137 meq/L 136-145 POTASSIUM 4.4 meq/L 3.5-5.0 CALCIUM (mg/dL) 9.8 mg/dL 8.4-10.4 PROTEIN,TOTAL 7.8 g/dL 6.0-8.6 ALBUMIN 4.7 g/dL 3.4-5.0 TOTAL BILIRUBIN 0.5 mg/dL 0.2-1.2 ASPARTATE TRANSAMINASE 23 U/L 5-34 ALANINE AMINOTRANSFERASE 35 U/L 8-40 CHLORIDE 102 meq/L 98-107 CO2 30 meq/L 22-31 ALKALINE PHOSPHATASE 95 U/L 40-150 EGFR (CKD-EPI 2020) 88 Jun 19, 2024 09:35 AM [facility] URINE ALBUMIN, RANDOM URINE Specime n Type: URINE No comment entered. Ordering Provider: NICKI SAUL Report Released Date/Time: Jun 24, 2023 02:12 PM Reporting Lab: [address] [phone] Performing Lab: [address] [phone] *URINE ALBUMIN <0.5 mg/dL *CREATININE mg/dL 42.9 mg/dL Jun 19, 2024 09:35 AM [facility] TRIGS PLASMA Specimen Type: PLASM A No comment entered. Ordering Provider: NICKI SAUL Report Released Date/Time: Jun 16, 2024 07:26 AM Reporting Lab: [address] [address] Performing Lab: [place] [phone] TRIGS 99 mg/dL 0-150 Vital Signs: All taken on the encounter date This section contains inpatient and outpatient Vital Signs collected on the date of the Encounter. Date/Time Temperature Pulse Blood Pressure Respiratory Rate SP02 Pain Height Weight Body Mass Index Source Jun 19, 2024 09:50 AM 98.2 68 136/70 19 2 189 27 [facility] Social History: Smoking Status (Most current) and Tobacco Use (All prior to encounter date) This section includes the most current, and the historical, smoking and tobacco- related health factors from the [place] facility where the Encounter took place. Current Smoking Status This section includes the most current smoking, or tobacco-related health factor, from the [place] facility where the Encounter took place. Date/Time Current Smoking Status Comment Suleiman ity Jun 19, 2024 11:30 AM VA-TOBACCO USE [place] [employer] [facility] Tobacco Use History This section includes a history of the smoking, or tobacco-related health factors, that were collected on or before the date of the Encounter. The data comes from the [place] facility where the Encounter took place. Date/Time Smoking Status/Tobacco Use Comment F yris Jun 19, 2024 11:30 AM VA-TOBACCO USE [place] [employer] [facility] Encounter Notes: All associated encounter notes This section contains the clinical notes associated to the Encounter. Date/Time Encounter Note(s) Provider Source Jun 23, 2024 09:58 AM TEAM LETTERS: LOCAL TITLE: CO-PC RESULTS LETTER (D) STANDARD TITLE: TEAM LETTERS DATE OF NOTE: JUN 23, 2024@09:58 ENTRY DATE: JUN 23, 2024@09:59:04 AUTHOR: NICKI SAUL EXP COSIGNER: URGENCY: STATUS: COMPLETED BL[facility] ([id number]) [address] [facility] [address] [place] [phone] [address]O [address]OCK [address] [place], [place], [address] Date: Jun Dear OSITO LOCK: I have included a copy of your lab results below. Your A1C, which reflects your average blood sugar, has increased from last year. It would be good for your local primary care provider to follow up on this test in 3-6 months for monitoring. The remainder of your results are stable with no new concerns. Please let myself or my nurse know if you have any further questions. Report Released Date/Time: Jun 19, 2024@21:22 Test name Result units Ref. range Site Code *CREATININE mg/dL 42.9 mg/dL [6010] *URINE ALBUMIN <0.5 mg/dL [6010] WBC 10.30 K/cmm 3.6 - 11.2 [6010] RBC 5.19 M/ul 4.10 - 5.70 [6010] HGB 14.8 g/dL 13.1 - 16.8 [6010] HCT 45.5 % 38.2 - 48.4 [6010] MCV 87.7 fl 80.0 - 100.0 [6010] MCH 28.5 pg 27.0 - 34.0 [6010] MCHC 32.5 L g/dL 33.0 - 36.0 [6010] RDW 13.7 % 11.8 - 15.1 [6010] PLATELET COUNT 285 K/cmm 150 - 400 [6010] MPV 10.8 fl 7.5 - 11.2 [6010] HEMOGLOBIN A1C 6.3 H % 4.0 - 6.0 [6010] EGFR (CKD-EPI 2020) 88 [6010] SODIUM 137 mEq/L 136 - 145 [6010] POTASSIUM 4.4 mEq/L 3.5 - 5.0 [6010] CHLORIDE 102 mEq/L 98 - 107 [6010] CO2 30 mEq/L 22 - 31 [6010] UREA NITROGEN mg/dL 10 mg/dL 9 - 25 [6010] *CREATININE 0.92 mg/dL 0.7 - 1.3 [6010] GLUCOSE 106 H mg/dL 72 - 99 [6010] CALCIUM (mg/dL) 9.8 mg/dL 8.4 - 10.4 [6010] ASPARTATE TRANSAMINASE 23 U/L 5 - 34 [6010] ALANINE AMINOTRANSFERASE 35 U/L 8 - 40 [6010] ALKALINE PHOSPHATASE 95 U/L 40 - 150 [6010] TOTAL BILIRUBIN 0.5 mg/dL 0.2 - 1.2 [6010] PROTEIN,TOTAL 7.8 g/dL 6.0 - 8.6 [6010] ALBUMIN 4.7 g/dL 3.4 - 5.0 [6010] CHOLESTEROL 132 mg/dL 0 - 200 [6010] TRIGS 99 mg/dL 0 - 150 [6010] HDL-CHOLESTEROL 33 L mg/dL Ref: > 40 [6010] LDL,DIRECT (CO) 76 mg/dL [6010] Sincerely, NICKI ROSS URBAN PHYSICIAN Primary Care Provider Department of Primary Care NICKI SAUL [facility] Jun 19, 2024 10:18 AM PRIMARY CARE NOTE: LOCAL TITLE: CO-PC PRIMARY CARE PROVIDER F/U STANDARD TITLE: PRIMARY CARE NOTE DATE OF NOTE: JUN 19, 2024@10:18 ENTRY DATE: JUN 19, 2024@10:18:14 AUTHOR: NICKI SAUL EXP COSIGNER: URGENCY: STATUS: COMPLETED OSITO LOCK [address] [place], [place] [address] CLINIC FOLLOW-UP PATIENT This note was dictated using the Perficient voice application. Please disregard any singer songwriter errors, misspellings, or grammatical issues. OSITO LOCK [phone] WHITE MALE CO-BTW PACT 4 *WH* ==== CHIEF COMPLAINT Yearly follow-up ==== HISTORY OF PRESENT ILLNESS Patient presents today for yearly follow-up. He continues to follow with a physician named Dr. Holloway who works in the [facility]. Notes that she will be retiring he plans to transition to another provider in the community. Notes that since last time his is also been diagnosed with breast cancer. Daughter had previously been diagnosed as well. He states I am hoping things settle down so I can spend some on the braga . He reports no new concerns. Been out of his blood pressure medications for the last few days. He has good compliance with medications otherwise. Notes he has not been able to use his CPAP regularly over the last 6 months. States that he has difficulties using and plans to reach out to the sleep lab team about other mask options. He continues to smoke. Currently down to 1/2 pack/day. ====== MEDICATIONS MEDICATION RECONCILIATION Active Outpatient Medications (including Supplies): Active Outpatient Medications Status 1) AMLODIPINE BESYLATE 5MG TAB TAKE ONE TABLET BY MOUTH ACTIVE (S) EVERY MORNING FOR BLOOD PRESSURE Pending Outpatient Medications Status 1) CHOLECALCIF 50MCG (D3-2,000UNIT) TAB TAKE TWO TABLETS PENDING BY MOUTH ONCE A DAY 2) ENALAPRIL MALEATE 20MG TAB TAKE TWO TABLETS BY MOUTH PENDING ONCE A DAY 3) MULTIVITAMIN/MINERALS SENIOR FORMULA TAB TAKE 1 PENDING TABLET BY MOUTH ONCE A DAY 4) SIMVASTATIN 80MG TAB TAKE ONE-HALF TABLET BY MOUTH AT PENDING BEDTIME Active Non-VA Medications Status 1) Non-VA AMLODIPINE BESYLATE 10MG TAB 5MG MOUTH EVERY ACTIVE MORNING 2) Non-VA ENALAPRIL MALEATE 20MG TAB 40MG MOUTH ONCE A ACTIVE DAY 3) Non-VA SIMVASTATIN 80MG TAB 40MG MOUTH AT BEDTIME ACTIVE 8 Total Medications ====== PHYSICAL EXAMINATION DATE/TIME TEMP PULSE RESP BP PAIN WEIGHT PUL OX 06/19/24 @ 0950 98.2 68 19 136/70 2 189 06/24/23 @ 1308 98.5 59 126/70 0 188 05/27/23 @ 1100 98.2 76 155/85 0 186 05/09/21 @ 0832 97.8 64 16 161/71 2 200 Temp: 98.2 F [36.8 C] (06/19/2024 09:50) Pulse: 68 (06/19/2024 09:50) B/P: 136/70 (06/19/2024 09:50) Resp: 19 (06/19/2024 09:50) Height: 70 in [177.8 cm] (02/06/2016 12:53) Weight: 189 lb [85.73 kg] (06/19/2024 09:50) Pain: 2 (06/19/2024 09:50) BMI: 27.2 GENERAL: Alert and awake, cooperative, well nourished. SKIN: No jaundice or pallor noted. NECK: No cervical chain lymphadenopathy is appreciated. CVS: Regular rate and rhythm. No murmurs RESPIRATORY: Breath sounds are clear to auscultation b/l. No conversational dyspnea. GI: Soft, nontender, non-distended. EXTREMITIES: No edema. NEURO: Alert and oriented. Speech is fluent. PSYCH: Appropriate mood and affect. Not tearful or anxious appearing. Without pressured speech. ======== HEALTH MAINTENANCE Colon cancer screening done through primary care provider. Believes his last colonoscopy was performed at age 65 with that he had 2-4 polyps removed at that time. Tobacco history of smoking for 20 years, then stopped for 10 years, then resumed smoking for 30 years. Previously smoked up to 3 packs/day, currently down to 1/2 pack/day. Last LDCT was November 2023. Agreeable to repeat screening ======== IMPRESSION & PLAN presents for yearly. He has his provider in community as noted Hypertension. Blood pressure appropriately controlled. Medications refilled Hyperlipidemia. Tolerating statin without difficulty. Labs pending Tobacco abuse. Due for LDCT in November 2024. Order placed Colon cancer screening being managed through his primary care provider. Of note previous E consult performed and stated would be due for next colonoscopy in 2025 Obstructive sleep apnea. He is going to reach out to the sleep lab to inquire about other mask. We did talk about inspire but he does not seem inclined to do so at this time Lab results pending at time of visit, we will notify of results once available. Reviewed plans for follow up as well as indications to call with any questions or concerns. Patient aware and agreeable. Time spent: I personally spent a total time of 35 minutes reviewing prior medical records, test results, and/or history that was separately obtained, performing the exam, providing education to the patient/caregiver, ordering medications/testing, and documenting in the medical record. CO-FRAILTY REMINDER: Patient does not meet the criteria for frailty. Eye Care At-Risk Screen-L,N,PH,U: Patient identified to be at risk for the following eye condition(s): MACULAR DEGENERATION: Macular Degeneration Risk Factors Information: Reminder Term: VA-AMD RISK FACTORS Encounter Diagnosis: 11/17/2023@12:44 F17.210 (ICD-10-CM) Nicotine Dependence, Cigarettes, Uncomplicated rank: PRIMARY Prov. Narr. - Nicotine Dependence, Cigarettes, Uncomplicated Action: No Referral Ordered: Eye exam completed elsewhere by an Single Fold Machine Operator or Medical Record Librarian Exam Information: Date: December, ? Exact date is unknown Findings/Comment date is estimate. Done at [facility] in the [facility], [facility]1983 Influenza Immunization-L,N,P,PH,U: Deferral / Refusal The patient declines to receive the recommended dose of seasonal influenza vaccine. Immunization: INFLUENZA, UNSPECIFIED FORMULATION Refusal Reason: PATIENT DECISION Patient refuses all immunization(s) in the FLU group Date Documented: 06/19/24 10:22 /ale/ NICKI SAUL PHYSICIAN Signed: 06/19/2024 10:23 NICKI SAUL [facility] Jun 19, 2024 09:39 AM NURSING OUTPATIENT NOTE: LOCAL TITLE: CO-PC NURSE NOTE (D) STANDARD TITLE: NURSING OUTPATIENT NOTE DATE OF NOTE: JUN 19, 2024@09:39 ENTRY DATE: JUN 19, 2024@09:39:43 AUTHOR: DANTE BLOOM COSIGNER: URGENCY: STATUS: COMPLETED Patient Identifiers : Full Name, Date of , Last 4 of SSN Reason for visit: Established Follow-Up Visit Objective What is most important for you to get out of today's visit? . Mode of Arrival: Ambulatory Does patient have both fever AND new or worsening cough or shortness of breath? No Is there anything in your life that is causing you any kind of stress? Patient stated that there are no stressful situations at this time. Allergy Review: OMEPRAZOLE Allergy list reviewed and remains current. Temperature: 98.2 F (36.8 C) Pulse: 68 Respiration: 19 B/P: 136/70 Extremity used: Left Arm Patient is able to communicate pain level. Pain: 2 Is pain score above 0? Yes Location of pain: back Quality of Pain: Aching Wt: 189 lb (85.9 kg) Are you registered for [facility] ([facility])? No - Are you interested in registering? No Is patient on oxygen? No Is patient receiving half-way care? No Is patient using the services of a home health aide? No Healthy Living Screening DATE OF SEPARATION: May BMI: 27.0 Supplements/medications taken by the patient: tylenol https://www.cdc.gov/vaccine s/hcp/vis/ ...Skin Risk Assessment please answer all questions Are you confined mostly to your wheelchair? No Do you have accidents with your urine? No Do you have accidents with your bowel? No Do you have a pressure ulcer (bedsore)? No HERRERA FALL SCALE The Herrera Fall scale was performed and score was 15. This is indicative of low risk of falls. History of falling: immediate or within 3 months? No Secondary diagnosis: Yes Ambulatory aid: None/bedrest/nurse assist Intravenous therapy/Heparin lock: No Gait/Transferring: Normal/bed rest/immobile Mental Status: Oriented to own ability/knows own limitations <*> If patient is HIGH RISK, IMMEDIATELY open another session of CPRS and enter a CO-HIGH RISK note on this patient. OUTPATIENT MALNUTRITION SCREENING TOOL Have you been eating poorly because of decreased appetite? No Have you lost weight in the past 6 months without trying? No Do you have any other nutrition questions or concerns that you would like to have a dietitian contact you about? No Time spent with the contact: 11-20 minutes. Alcohol Use Screen (AUDIT-C)-V: Alcohol Screen: SCREEN FOR ALCOHOL (AUDIT-C) An alcohol screening test (AUDIT-C) was negative (score=2). 1. How often did you have a drink containing alcohol in the past year? Consider a drink to be a 12 ounce can or bottle of regular beer, 8 ounces of malt liquor, a 5 ounce glass of table wine, or a 1.5 ounce shot of liquor (like scotch, gin, or vodka). Two to four times a month 2. How many drinks containing alcohol did you have on a typical day when you were drinking in the past year? One or two drinks 3. How often did you have six or more drinks on one occasion in the past year? Never Depression Screening-V: Perform PHQ-2 A PHQ-2 screen was performed. The score was 0 which is a negative screen for depression. Over the past two weeks, how often have you been bothered by the following problems? 1. Little interest or pleasure in doing things Not at all 2. Feeling down, depressed, or hopeless Not at all Suicide Screen-V: C-SSRS Screening [place] Suicide Severity Rating Scale (C-SSRS) screener 1. Over the past month, have you wished you were or wished you could go to sleep and not wake up? No 2. Over the past month, have you had any actual thoughts of killing yourself? No 3. Over the past month, have you been thinking about how you might do this? Response not required due to responses to other questions. 4. Over the past month, have you had these thoughts and had some intention of acting on them? Response not required due to responses to other questions. 5. Over the past month, have you started to work out or worked out the details of how to kill yourself? Response not required due to responses to other questions. 6. If yes, at any time in the past month did you intend to carry out this plan? Response not required due to responses to other questions. 7. In your lifetime, have you ever done anything, started to do anything, or prepared to do anything to end your life (for example, collected pills, obtained a gun, gave away valuables, went to the roof but didn't jump)? No 8. If YES, was this within the past 3 months? Response not required due to responses to other questions. Tobacco Use Screening-DE,L,M,N,P,PH,PS, S,U: The patient smokes cigarettes every day. The patient states they have smoked for the following number of years: # of years: 30 Average number of packs/day over the entire time patient smoked: Packs/day: 0.5 The patient has never used other types of tobacco. Homelessness/Food Insecurity Screen-DI,L,N,P,PH,PS,S,U: In the past 2 months, have you been living in stable housing that you own, rent, or stay in as part of a household? Yes - Living in stable housing. Are you worried or concerned that in the next 2 months you may NOT have stable housing that you own, rent, or stay in as part of a household? No - Not worried about housing near future The [place] reports the following: Within the past 12 months, you worried whether your food would run out before you got money to buy more. Never true Within the past 12 months, the food you bought just didn't last and you didn't have money to get more. Never true [facility] DIGITAL DIVIDE CAPABILITY REMINDER: Patient is not interested in [facility] at this time. 'S RIGHT TO DECLINE STATEMENT understands they have the right to decline the use of Telehealth Technology at any time without adverse affects on their continued access to healthcare. CO-HEALTHY LIVING SCREEN: HEALTHY LIVING SCREEN === NEUROPSYCHOSOCIAL === Patient oriented to time: YES Patient oriented to place: YES Patient oriented to person: YES [place] states they have no issues with memory, thinking, or problem solving on a daily basis. Family and/or friends have not noticed any concerns with 's memory, thinking, or solving problems in daily life. PCP was not alerted because no issues === ADVANCE DIRECTIVE === Do you have an Advance Directive? No Would you like someone to contact you about one? No Did you bring a copy to place in your medical record? No Are you interested in becoming an organ donor? Yes === PATIENT EDUCATION === Has the patient received a copy of the Healthy Living Pamphlet? NO Were the patient's questions regarding health care and this survey discussed to the patient's satisfaction? No Patient's Preferred Health Care Language is: [facility] - Health Factor Select Preferred Language For Health Care 05/09/2021 Armenian 05/22/2018 Armenian Armenian Patient is ready to learn. Patient reads well. Barriers to Learning: Has a hearing problem which may effect ability to learn. Hearing problem: aides Has decreased vision Preferred Method of Learning: Return Demonstration Hands On/Doing Patient's Support Person and NOK: JERE LOCK SPOUSE [address] [id number] RHS Screen-VS: RHS Screen Session Format: Face to Face Environmental Check Upon inquiry, the individual reports that the environment is safe to proceed. Informed Consent to Screen and Document The individual consents to proceed with screening. The individual consents to documentation of responses. PRIMARY SCREEN: In the past 12 months, how often did a current or former intimate partner (e.g., boyfriend, girlfriend, , , sexual partner): 1. Scream or curse at you Never 2. Insult or talk down to you Never 3. Threaten you with harm Never 4. Physically hurt you Never 5. Force or pressure you to have sexual contact against your will, or when you were unable to say no Never The HITS tool (items 1-4 above) is [place] copyright protected by Pasha Miller MD, and the user has full rights to use it throughout the [place] system. PRIMARY SCREEN RESULT: The Primary Screen is NEGATIVE. The individual answered never to all forms of IPV above (i.e., answered never to all 5 items) The individual accepts education and/or resources: No EDUCATION: Other: Sexual Orientation-CP,L,N,P,PH,PS, S,U: The patient thinks of their sexual orientation as: Straight or Heterosexual Influenza Immunization-L,N,P,PH,U: Deferral / Refusal The patient declines to receive the recommended dose of seasonal influenza vaccine. Immunization: INFLUENZA, UNSPECIFIED FORMULATION Refusal Reason: PATIENT DECISION Patient refuses all immunization(s) in the FLU group Date Documented: 06/19/24 09:56 COVID-19 Immunization-L,N,P,PH,U: Refused Moderna Monovalent COVID-19 vaccine Immunization: COVID-19 (MODERNA), MRNA, LNP-S, PF, 50 MCG/0.5 ML (AGES 12+ YEARS) Refusal Reason: PATIENT DECISION Patient refuses all immunization(s) in the COVID-19 group Date Documented: 06/19/24 09:56 /es/ DANTE BLOOM LPN Signed: 06/19/2024 09:57 DANTE BLOOM [facility]
== END 2024-11-19 12:28 | disposition home or self-care (01) ==
DX: Z12.2 Encounter for screening for malignant neoplasm of respiratory organs (principal); Z87.891 Personal history of nicotine dependence
CPT/HCPCS: 71271

== ENCOUNTER 2025-05-24 10:58 | Emergency (ER) | payer MEDICARE, BC, OTHER, SELFPAY ==
[2025-05-24 11:13] VITALS: BP 139/65; PULSE 67; RESP 16; TEMP 36.4; O2SAT 97
--- NOTE | 2025-05-24 11:54 | ED_ITS ---
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 Patient reports that about 1 month ago which he attributed to a muscle strain in his right lower back that did resolve, reports no hematuria at that time or any history of kidney stones in the past. Patient and concerned with blood in the urine and they called their doctors office to see if could get labs and ct scan of abdomen done but they were told that since his doctor has retired they would have to wait till his appointment on Saturday to be seen before any tests could be ordered. Patient will be sent to ED for further evaluation since prior history of dialysis due to vasculitis in the past for labs to evalute kidney status. MD Complaint: other (blood in urine) Onset (ago): day(s) (5 days) Severity: moderate Associated symptoms: Reports blood in urine Related Data Allergies Allergy/AdvReac Type Severity Reaction Status Date / Time No Known Allergies Allergy Verified 05/24/25 13:14 Review of Systems Review of Systems: CONSTITUTIONAL: Denies fever, chills, or sweats. CARDIOVASCULAR: Denies chest pain, palpitations, or edema. RESPIRATORY: Denies cough or dyspnea. GASTROINTESTINAL: Denies abdominal pain, nausea, vomiting, or diarrhea. GENITOURINARY: Reports no dysuria, frequency, urgency. Denies flank pain + hematuria. SKIN: Denies rash or itching. MUSCULOSKELETAL: Denies back pain or myalgia. 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 Tobacco abuse BINU (obstructive sleep apnea) Abnormal nasal septum H/O fracture of nose Hyperlipidemia Benign essential HTN Normal colonoscopy Surgical History Surgical History H/O: vasectomy History of mastectomy Family History Family History Mother Heart disease Father Multiple myeloma Social History Social History Social History: Smoking packs per day: 1 Smoking cigarettes per day: 20.0 Years smoked: 40 Smoking pack-years: 40.00 Smoking status: Current every day smoker Tobacco type: cigarettes Alcohol intake: current Alcohol use details: Occasionally Substance use: never Substance use type: does not use Do You Feel Safe in your Home?: Yes Lack of Transportation: No Lack of Food: Never True Current Housing: I Have Housing Concerned About Future Housing: No Difficulty Paying Gas/Electric Bills: No Difficulty Paying for Meds: No Currently Unemployed: YES Education: Don't Know Difficulty w/ Childcare or Family Care: No Living arrangements: with family Occupation/Education: retired Gender identity (if verbalized by the patient): Male Sexual Orientation (if Verbalized by the Patient): Straight or Heterosexual Comments At time of signature, agree with nursing past medical, surgical, social and family history. There is no relevant family history pertinent to the presenting complaint Exam Narrative: GENERAL: Well-appearing, well-nourished, and in no acute distress. HEAD: Normocephalic, atraumatic. NECK: Supple.no lymphadenopathy CHEST: Clear to auscultation. No respiratory distress. is daily tobacco user no acute cough SAO2 97% on room air HEART: Regular rate and rhythm. No murmur heard. Normal peripheral pulses. ABDOMEN: Soft, nontender, nondistended, normal active bowel sounds. No CVA tenderness, no suprapubic tenderness EXTREMITIES: Normal range of motion. No edema, denies any present lower back pain SKIN: Warm, dry, no rash. NEURO: No focal deficits. Alert and oriented x3. Course Course Emergency Course: Patient is aware of diagnosis, understands and agrees to treatment plan.? Anticipatory guidance given.? Patient agrees to follow-up as directed and is aware of reasons to seek care at the emergency department. Portions of this record may have been created with voice recognition software Level of Care: Express Care Visit Vital Signs Vital signs: Vital Signs Temperature 36.4 C 05/24/25 11:13 Pulse Rate 67 05/24/25 11:13 Respiratory Rate 16 05/24/25 11:13 Blood Pressure 139/65 05/24/25 11:13 Pulse Oximetry 97 05/24/25 11:13 Temperature 36.4 C 05/24/25 11:13 Pulse Rate 67 05/24/25 11:13 Respiratory Rate 16 05/24/25 11:13 Blood Pressure 139/65 05/24/25 11:13 Pulse Oximetry 97 05/24/25 11:13 Transfer Transfered to: [place] Transportation: Other (private car with ) Transfer rationale: gross hematuria starting 5 days which has now decreased concerned since past history of vasculitis causing patient to be on dialysis for 1 year in 2010, needs further testing than can be provided in express care Accepting physician: Dr King Transfer comments: Transported to [place] ED per private car with MDM - Male Genitourinary MDM Narrative Medical decision making narrative: 1225 Call placed to ED at [facility] with condition report, labs reviewed, VS ,PMH and patient concerns since had been on dialysis in past to [facility] with Dr King accepting patient for transfer. Differential Diagnosis Differential diagnosis: Likely urinary tract infection, urethritis, prostatitis and other (hematuria, ) Medical Records Attestation: I reviewed the patient's medical records. Lab Data Attestation: I reviewed the patient's lab results. Lab results narrative: urine dip blood 3+,protein trace, negative for leukocytes Labs: Lab Results 05/24/25 Range/Units 11:15 POC Urine Color Yellow POC Urine Clarity Clear POC Urine pH 6.0 POC Ur Specif [place] 1.010 POC Urine Protein Trace (Negative) POC Ur Glucose (UA) Negative (Negative) POC Urine Ketones Negative (Negative) POC Urine Blood 3+ (Negative) POC Urine Nitrite Negative (Negative) POC Urine Bilirubin Negative (Negative) POC Urine Urobilinogen 0.2 POC U Leukocyte Esteras Negative (Negative) reviewed Critical Care Time Critical Care Time Critical Care Time: No Discharge Plan Discharge Clinical Impression: Hematuria Qualifiers: Hematuria type: other microscopic Qualified Code(s): R31.29 - Other microscopic hematuria Patient Disposition: Acute Care Hospital Condition: Stable Patient Language: Nicaraguan Prescriptions: No Action amlodipine 5 mg tablet 5 mg PO DAILY Qty: 100 1RF enalapril maleate 20 mg tablet 20 mg PO BID Qty: 180 0RF simvastatin 40 mg tablet 40 mg PO DAILY Qty: 100 1RF Follow-up/Referrals: Mignon Daugherty MD [Primary Care Provider, [facility]] Time of Disposition: 12:45 Quality Maribeth Coma Scale Eyes: Open Verbal: Oriented and Alert Motor: Follows Commands Maribeth Coma Total Score: 15
[2025-05-24 12:41] LABS: EDUAAPPEAR Clear; EDUABILI Negative (Negative); EDUABLOOD 3+ (Negative); EDUACOLOR1 Yellow; EDUAGLUCOSE Negative (Negative); EDUAKETONE Negative (Negative); EDUALEUKO Negative (Negative); EDUANITRATE Negative (Negative); EDUAPH 6.0; EDUAPROTEIN Trace (Negative); EDUASPGRAVITY 1.010; EDUAUROBILI 0.2
== END 2025-05-24 12:45 | disposition short-term general hospital (02) ==
PROVIDERS: Emergency Provider Registered Nurse; PCP Family Medicine
DX: R31.29 Other microscopic hematuria (principal); F17.210 Nicotine dependence, cigarettes, uncomplicated; I10 Essential (primary) hypertension; E78.5 Hyperlipidemia, unspecified; Z98.52 Vasectomy status; Z90.10 Acquired absence of unspecified breast and nipple
CPT/HCPCS: 81003; 87086; 99213; G0463

== ENCOUNTER 2025-05-24 13:08 | Emergency (ER) | payer OTHER, MEDICARE, BC, SELFPAY ==
--- NOTE | ~2025-05-24 | CT_ITS ---
EXAM/PROCEDURE: CT abdomen pelvis wo con HISTORY: hematuria COMPARISON: None available. TECHNIQUE: Noncontrast CT of the abdomen and pelvis FINDINGS: The bowel gas pattern is nonobstructive with no free air free fluid or pneumatosis. No hydroureteronephrosis. No urolithiasis seen in the kidneys, urinary bladder or visualized ureters. The urinary bladder is nondistended but there appears to be mild wall thickening present. Moderately severe sigmoid diverticular disease present with no gross acute diverticulitis. Normal size appendix and aorta and gallbladder. Splenic and hepatic granulomata. 2.8 cm low-density mass in the midpole of the right kidney probably represent cysts. Lung bases are clear. No bulky lymphadenopathy or masses seen. IMPRESSION: Directed noncontrast exam demonstrating somewhat thickened appearance of the urinary bladder. 2.8 cm probable cyst in the midpole the right kidney. Other findings as above. Reviewed, dictated and finalized at location A. [facility]DER IMPRESSION: Directed noncontrast exam demonstrating somewhat thickened appearan ce of the urinary bladder. 2.8 cm probable cyst in the midpole the right kidney . Other findings as above.
[2025-05-24 13:12] VITALS: BP 149/72; PULSE 62; RESP 16; TEMP 36.4; O2SAT 99
--- OUTSIDE RECORDS SUMMARY | 2025-05-24 15:40 | XMS_ITS | Clinical Summary ---
Author Organization [facility] Facility Address [address] [address] Care Team Providers Care Project Assistant Name Role Phone Unavailable Primary Care Provider [...] of 1 - PCV) 2000 Influenza Vaccine (#1) 2025 Hepatitis B Vaccine Aged Out No longe r eligible based on patient's age to complete this topic
--- NOTE | 2025-05-24 15:51 | ED.GENADULT ---
HPI - General Adult General Chief complaint: Urogenital-Male Stated complaint: hematuria Time Seen by Provider: 05/24/25 15:33 History of Present Illness HPI narrative: 74-year-old male present to the emergency department for evaluation for hematuria. Patient states he began having the hematuria on Saturday and it persisted through Saturday. Patient states this started off as dark urine and by Saturday the urine was basically read. Patient did have follow-up with urgent care today he states that his urine had significantly improved on is basically clear today. Patient is not on any blood thinners. Patient denies any prior history of kidney stone. Patient reports last month he was having some right lower back pain that he attributed to a back strain but denies any hematuria at that point. At time of evaluation patient denies any current abdominal pain. Patient denies any coughs colds or fevers. Patient denies any pain with urination. Patient did have a urinalysis done at urgent care today that did have hematuria but no underlying signs of infection. 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 Tobacco abuse BINU (obstructive sleep apnea) Abnormal nasal septum H/O fracture of nose Hyperlipidemia Benign essential HTN Normal colonoscopy Surgical History Surgical History H/O: vasectomy History of mastectomy Family History Family History Mother Heart disease Father Multiple myeloma Social History Social History Social History: Smoking packs per day: 1 Smoking cigarettes per day: 20.0 Years smoked: 40 Smoking pack-years: 40.00 Smoking status: Current every day smoker Tobacco type: cigarettes Alcohol intake: current Alcohol use details: Occasionally Substance use: never Substance use type: does not use Do You Feel Safe in your Home?: Yes Lack of Transportation: No Lack of Food: Never True Current Housing: I Have Housing Concerned About Future Housing: No Difficulty Paying Gas/Electric Bills: No Difficulty Paying for Meds: No Currently Unemployed: YES Education: Don't Know Difficulty w/ Childcare or Family Care: No Living arrangements: with family Occupation/Education: retired Gender identity (if verbalized by the patient): Male Sexual Orientation (if Verbalized by the Patient): Straight or Heterosexual Exam Narrative: APPEARANCE: Well appearing, no pain, no distress, well-nourished. HEAD: normocephalic, atraumatic. EYES: PERRLA/EOMI, conjunctivae clear. NOSE: Normal no drainage EARS:TMS clear with good light reflex. THROAT: Pharynx clear, no exudate. NECK: Supple. No adenopathy, no masses. RESPIRATORY: Airway patent, respirations nonlabored. Clear to auscultation bilaterally, no rales, rhonchi, wheezing. CARDIOVASCULAR: Regular rate and rhythm without murmurs rubs or gallops. ABDOMINAL: Soft, nontender, nondistended, normal bowel sounds MUSCULOSKELETAL: Moves all extremities. Strength/ROM intact, No edema, No calf tenderness. NEURO: Alert. Cranial nerves II through XII intact. Good gait. Good coordination SKIN: Warm, dry. Normal Color Course Vital Signs Vital signs: Vital Signs Temperature 97.5 F L 05/24/25 13:12 Pulse Rate 62 05/24/25 13:12 Respiratory Rate 16 05/24/25 13:12 Blood Pressure 149/72 H 05/24/25 13:12 Pulse Oximetry 99 05/24/25 13:12 Oxygen Delivery Room Air 05/24/25 13:12 Temperature 98 F 05/24/25 16:30 Pulse Rate 62 05/24/25 16:30 Respiratory Rate 18 05/24/25 16:30 Blood Pressure 133/71 05/24/25 16:30 Pulse Oximetry 97 05/24/25 16:30 Oxygen Delivery Room Air 05/24/25 13:12 Medical Decision Making [facility] Narrative Medical decision making narrative: [age] old male presents to the emergency department for evaluation for improving hematuria. UA collected as outpatient did show hematuria but no underlying evidence of infection. Patient is afebrile does have a leukocytosis of 10.9 hemoglobin of 14.6. INR is 1.0. No acute abnormalities on his CMP with normal kidney function. CT scan did show some thickening of the bladder wall. Patient was encouraged close follow-up with urology for additional outpatient evaluation potentially including cystoscopy. All questions concerns were addressed patient was educated on reasons to return to the emergency department. Differential Diagnosis Differential Diagnosis: Hematuria, urinary tract infection, ureteral calculi, bladder mass Vital Signs Vital Signs: Vital Signs Temperature 97.5 F L 05/24/25 13:12 Pulse Rate 62 05/24/25 13:12 Respiratory Rate 16 05/24/25 13:12 Blood Pressure 149/72 H 05/24/25 13:12 Pulse Oximetry 99 05/24/25 13:12 Oxygen Delivery Room Air 05/24/25 13:12 Temperature 98 F 05/24/25 16:30 Pulse Rate 62 05/24/25 16:30 Respiratory Rate 18 05/24/25 16:30 Blood Pressure 133/71 05/24/25 16:30 Pulse Oximetry 97 05/24/25 16:30 Oxygen Delivery Room Air 05/24/25 13:12 Lab Data Lab results reviewed: Yes I reviewed the patient's lab results. 05/24/25 15:42 05/24/25 15:42 Labs: Lab Results 05/24/25 Range/Units 15:42 WBC 10.9 H (4.5-10.0) K/mm3 RBC 5.03 (4.6-6.20) M/mm3 Hgb 14.6 (14.0-18.0) g/dL Hct 44.8 (42.0-52.0) % MCV 89.1 (80-100) fl MCH 29.0 (26-34) pg MCHC 32.6 (32-36) g/dl RDW 13.8 (11.5-14.5) % Plt Count 213 (150-375) k/mm3 MPV 9.9 (7.4-10.4) fl Immature Gran % (Auto) 0.3 (0-0.5) % Neut % (Auto) 59.8 (45.5-73.1) % Lymph % (Auto) 26.1 (18.3-44.2) % Real % (Auto) 5.6 (2.6-8.5) % Eos % (Auto) 7.6 H (0-4.4) % Baso % (Auto) 0.6 (0.2-1.2) % Lymph # (Auto) 2.84 (0.9-3.2) K/mm3 Real # (Auto) 0.6 (0.1-0.6) K/mm3 Eos # (Auto) 0.8 H (0-0.3) K/mm3 Baso # (Auto) 0.1 (0.0-0.1) K/mm3 Abs Immat Gran (auto) 0.03 (0.00-0.031) K/mm3 Absolute Neuts (auto) 6.5 (1.3-6.7) K/mm3 Absolute Nucleated RBC 0.000 (0.0-0.012) K/mm3 Nucleated RBC % 0.0 (0.0-0.2) % PT 13.0 (11.1-14.7) Seconds INR 1.0 APTT 38.1 H (22.3-36.8) Seconds Sodium 138 (137-145) mmol/L Potassium 4.7 (3.4-5.0) mmol/L Chloride 101 (98-107) mmol/L Carbon Dioxide 30 (22-30) mmol/L Anion Gap 7 (4-12) mmol/L BUN 14 (9-20) mg/dL Creatinine 0.95 (0.7-1.3) mg/dL Estim Creat Clear Calc 60 ml/min Estimated GFR > 60 (59 - ) Glucose 96 (65-110) mg/dL Calcium 9.3 (8.4-10.2) mg/dL Total Bilirubin 0.5 (0.2-1.3) mg/dL AST 30 (17-59) U/L ALT 38 (6-50) U/L Alkaline Phosphatase 96 (38-126) U/L Total Protein 8.1 (6.3-8.2) g/dL Albumin 4.8 (3.5-5.1) g/dL Discharge Plan Discharge Clinical Impression: Hematuria Qualifiers: Hematuria type: other microscopic Qualified Code(s): R31.29 - Other microscopic hematuria Patient Disposition: Home Condition: Stable Instructions: Antibiotic Form, Hematuria (ED) Additional Instructions: Drink plenty of water. Have close outpatient follow-up with Urology. If you have any worsening symptoms then please call or return to the emergency department. Patient Language: Togolese Prescriptions: No Action amlodipine 5 mg tablet 5 mg PO DAILY Qty: 100 1RF enalapril maleate 20 mg tablet 20 mg PO BID Qty: 180 0RF simvastatin 40 mg tablet 40 mg PO DAILY Qty: 100 1RF Follow-up/Referrals: Shad Obrien MD [Physician, Urology] Mignon Daugherty MD [Primary Care Provider, Family Practice]
[2025-05-24 16:02] LABS: Hematocrit 44.8 % (42.0-52.0); Hemoglobin 14.6 g/dL (14.0-18.0); Immature Granulocyte Percent A 0.3 % (0-0.5); Lymphocytes Absolute Auto 2.84 K/mm3 (0.9-3.2); Mean Corpuscular HGB Conc 32.6 g/dl (32-36); Mean Corpuscular Hemoglobin 29.0 pg (26-34); Mean Corpuscular Volume 89.1 fl (80-100); Nucleated Red Blood Cells Absolute Auto 0.000 K/mm3 (0.0-0.012); Nucleated Red Blood Cells Perc 0.0 % (0.0-0.2); Platelet Count Result 213 k/mm3 (150-375); Red Blood Count 5.03 M/mm3 (4.6-6.20); White Blood Count 10.9 K/mm3 (4.5-10.0)
[2025-05-24 16:11] LABS: Alanine Aminotransferase 38 U/L (6-50); Albumin Level 4.8 g/dL (3.5-5.1); Alkaline Phosphatase 96 U/L (38-126); Anion Gap 7 mmol/L (4-12); Aspartate Amino Transferase 30 U/L (17-59); Bilirubin,Total 0.5 mg/dL (0.2-1.3); Blood Urea Nitrogen 14 mg/dL (9-20); Calcium 9.3 mg/dL (8.4-10.2); Carbon Dioxide 30 mmol/L (22-30); Chloride 101 mmol/L (98-107); Estimated CRCL calculation 60 ml/min; Estimated Glomerular Filt Rate > 60; Glucose 96 mg/dL (65-110); Potassium 4.7 mmol/L (3.4-5.0); Sodium 138 mmol/L (137-145); Total Protein 8.1 g/dL (6.3-8.2)
[2025-05-24 16:12] LABS: INR 1.0; Prothrombin Time 13.0 Seconds (11.1-14.7)
[2025-05-24 16:13] LABS: Partial Thromboplastin Time 38.1 Seconds (22.3-36.8)
[2025-05-24 16:30] VITALS: BP 133/71; PULSE 62; RESP 18; TEMP 36.6; O2SAT 97
== END 2025-05-24 16:47 | disposition home or self-care (01) ==
PROVIDERS: Emergency Provider Emergency Medicine; PCP Family Medicine
DX: R31.29 Other microscopic hematuria (principal); F17.210 Nicotine dependence, cigarettes, uncomplicated; G47.30 Sleep apnea, unspecified; I10 Essential (primary) hypertension; E78.5 Hyperlipidemia, unspecified
CPT/HCPCS: 36415; 74176; 80053; 85025; 85610; 85730; 99284